=== PATIENT | female | born 1990 | race Caucasian/White ===

== ENCOUNTER 2023-03-08 08:24 | Emergency (ER) | payer MEDICAID ==
[~2023-03-08] VITALS: Ht 165.1 cm; Wt 141.0 kg
[2023-03-08 08:50] VITALS: BP 141/71
[2023-03-08] MEDS ORDERED: ACETAMINOPHEN 500MG TABLET PO STA (09:24)
[2023-03-08] MEDS ORDERED: CYCLOBENZAPRINE 10MG TABLET PO ONE (09:30)
[2023-03-08] MEDS ORDERED: ACET-2708 MT (11:12)
[2023-03-08] MEDS ORDERED: IBUP-2029 MT (11:12)
[2023-03-08] MEDS ORDERED: CYCL10TA21 MT (11:12)
== END 2023-03-08 12:12 | disposition home or self-care (01) ==
LOC: ER 09:07
DX: S52.611A Displaced fracture of right ulna styloid process, initial encounter for closed fracture (principal); V49.9XXA Car occupant (driver) (passenger) injured in unspecified traffic accident, initial encounter; Y93.89 Activity, other specified; Y92.89 Other specified places as the place of occurrence of the external cause; Y99.8 Other external cause status
CPT/HCPCS: 71250; 73090; 73110; 73120; 73560; 74176; 99284